=== PATIENT | male | born 1985 | race Caucasian/White ===

== ENCOUNTER 2021-08-03 06:10 | Emergency (ER) | payer SELFPAY ==
[2021-08-03 06:26] VITALS: BP 174/116; PULSE 100; RESP 20; O2SAT 97; BMI 43.4
--- NOTE | 2021-08-03 07:49 | W.ED.ABDPA2 ---
HPI - Abdominal Pain General: Chief Complaint: General Medical Stated Complaint: Extreme pain has been getting worse Time Seen by Provider: 08/03/21 07:27 Source: patient Mode of arrival: ambulatory Limitations: no limitations History of Present Illness: HPI narrative: Patient is a 35-year-old male who presents to ED today with a complaint of rectal pain and swelling. Patient states he believes he has hemorrhoids. He states he noticed a small lump when he would wipe a few days ago and states it has progressively worsened and is incredibly uncomfortable at this time. He states he did notice some drainage today. He has not been running fevers. He states defecation is uncomfortable. 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 MD elicited complaint: other (rectal pain) Onset (ago): day(s) Pain Consistency: constant Location: Other (rectal) Radiation: none Migration to: no migration Exacerbating factors: other (walking, defecation) Associated Symptoms: Denies chills, diarrhea, fever(s), hematochezia, melena, nausea and vomiting Review of Systems Const: Denies: fever(s), chills, body aches, fatigue or malaise Card: Denies: chest pain Resp: Denies: dyspnea GI: Reports: pain on defecation and rectal pain; Denies: abdominal pain, nausea, vomiting, diarrhea, hematochezia or melena Musc: Denies: back pain Physical Exam Const: COMMON NORMALS: no acute distress, patient oriented x3, no limitations and alert GENERAL APPEARANCE: cooperative NUTRITIONAL APPEARANCE: obese morbidly obese Resp: COMMON NORMALS: normal respiratory effort and clear to auscultation bilaterally AUSCULTATION: clear to auscultation bilaterally Cardio: COMMON NORMALS: regular rate and regular rhythm RATE: regular rate RHYTHM: regular rhythm GI: RECTAL EXAM: Yes other (see below) OTHER: pt has an abscess measuring approximately 2cm to L anal verge that is actively draining purulent and bloody serosanguineous material Neuro: COMMON NORMALS: patient oriented x3 SENSORIUM/ORIENTATION: Yes alert Course Vital Signs: Vital signs: Vital Signs Pulse Rate 100 08/03/21 06:26 Respiratory Rate 20 H 08/03/21 06:26 Blood Pressure 174/116 08/03/21 06:26 Pulse Oximetry 97 08/03/21 06:26 MDM - Abdominal Pain MDM Narrative: Medical decision making narrative: Patient clinically has a perianal abscess. He does complain of pain on the inside . I did recommend labs/CT imaging for further evaluation as I told patient these abscesses can often times be deeper than what we can see visually. Patient states he does not have any form of insurance and is incredibly worried over the cost of his ED visit. He is adamantly refusing these. I told patient we will treat him as best we can just based on his clinical exam. Abscess is already actively draining. Recommend keeping area clean with sits baths several times daily. He was given IV doses of ciprofloxacin/flagyl and will be sent home with these medications. Strict return to ED precautions given in 24 to 48 hours if area does not seem to be improving. Patient states he is a entry level truck driver but will try to stay in town/get hotel room over the next 48 hours so he can closely monitor symptoms. Discharge Plan Discharge Patient Disposition: Home Clinical Impression: Perianal abscess Condition: Stable Prescriptions: New hydrocodone-acetaminophen 5-325 mg tablet 1 tab PO Q4H PRN (Reason: pain) Qty: 15 RF: 0 Flagyl 500 mg tablet 500 mg PO BID 7 Days Qty: 14 RF: 0 Cipro 500 mg tablet 500 mg PO Q12H Qty: 14 RF: 0 Discharge Orders: Discharge ED (Routine); Ordered 08/03/21 Ordered By: Celina Francois Patient Instructions: Anorectal Abscess and Anal Fistula (ED), Rectal Abscess (ED) Activity Restrictions/Additional Instructions: As we discussed keep area clean and perform sitz baths 3-4 times daily if possible. Begin antibiotics immediately. You may take pain medications as needed for severe pain. As we have discussed you declined lab work/CT imaging at this time. Please monitor symptoms closely at home and if symptoms do not seem to be improving over the next 24 to 48 hours you need to return to the ED for re-evaluation. Coding Level of Care Code ED [employer]
--- NOTE | 2021-08-03 09:05 | PC.NURSE ---
REVIEWED DISCHARGE INSTRUCTIONS WITH PATIENT, HE VERBALIZED UNDERSTANDING OF ALL INSTRUCTIONS, MEDICATIONS AND NEED FOR FOLLOW UP IF AREA IS NOT IMPROVING- ADVISED BY PROVIDER. PATIENT ABLE TO AMBULATED FROM THE EMERGENCY DEPARTMENT
== END 2021-08-03 09:06 | disposition home or self-care (01) ==
PROVIDERS: Emergency Provider Physician Assistant
DX: K61.0 Anal abscess (principal)
CPT/HCPCS: 99283